=== PATIENT | female | born 1980 | race Caucasian/White ===

== ENCOUNTER → 2017-04-01 | Day surgery (SDC) | payer OTHER ==
[~2017-04-01] VITALS: Ht 162.6 cm; Wt 65.8 kg
[2017-04-01 08:27] VITALS: BP 99/56
[2017-04-01 17:25] VITALS: BP 117/62
== END | disposition home or self-care (01) ==
LOC: DS 08:00 → MA 10:00 → OR 12:00
PROVIDERS: Surgery
PROC: 0HBT0ZZ Excision of Right Breast, Open Approach (ICD-10-PCS; principal; 2017-04-01 12:00)
DX: D24.1 Benign neoplasm of right breast (principal); Z68.25 Body mass index [BMI] 25.0-25.9, adult
CPT/HCPCS: J0690; J2001; J2250; J2704; J3010; J3490; J7120

== ENCOUNTER 2018-04-19 09:31 | Emergency (ER) | payer OTHER ==
[~2018-04-19] VITALS: Ht 165.1 cm; Wt 68.5 kg
[2018-04-19 09:37] VITALS: Ht 165.1 cm; Wt 68.5 kg
[2018-04-19 11:32] LABS: UA SPECIFIC GRAVITY 1.025 (1.005-1.035); microscopic required? YES; urine erythrocyte 3+ (NEGATIVE)
[2018-04-19 11:59] VITALS: BP 110/64
== END 2018-04-19 11:59 | disposition home or self-care (01) ==
LOC: ED 09:31
PROVIDERS: Emergency Medicine
DX: M54.5 Low back pain (principal); N28.1 Cyst of kidney, acquired; N83.201 Unspecified ovarian cyst, right side
CPT/HCPCS: Q0162

== ENCOUNTER 2019-11-16 11:09 | Emergency (ER) | payer BC, OTHER ==
[~2019-11-16] VITALS: Ht 165.1 cm; Wt 77.6 kg
[2019-11-16 11:35] VITALS: Ht 165.1 cm; Wt 77.6 kg
[2019-11-16 13:10] VITALS: BP 111/71
== END 2019-11-16 13:10 | disposition home or self-care (01) ==
LOC: ED 11:09
DX: S42.034A Nondisplaced fracture of lateral end of right clavicle, initial encounter for closed fracture (principal); S70.11XA Contusion of right thigh, initial encounter; S50.811A Abrasion of right forearm, initial encounter; V18.4XXA Pedal cycle driver injured in noncollision transport accident in traffic accident, initial encounter; Y93.I9 Activity, other involving external motion; Y92.488 Other paved roadways as the place of occurrence of the external cause; Y99.8 Other external cause status